=== PATIENT | male | born 1985 | race Two or more races ===

== ENCOUNTER 2016-08-03 19:42 | Inpatient (IN) | payer SELFPAY ==
[~2016-08-03] VITALS: Ht 172.7 cm; Wt 95.1 kg
[2016-08-03 20:11] LABS: BASO # 0.1 x10^3/uL (0.0-0.2); BASO % 1 % (0-3); EOS % 4 % (0-3); HEMATOCRIT 42.7 % (39.0-53.0); HEMOGLOBIN 14.1 g/dL (13.0-17.5); LYMPH # 2.3 x10^3/uL (1.0-4.8); LYMPH % 36 % (24-48); MEAN CORPUSCULAR HEMOGLOBIN 29 pg (25-35); MEAN CORPUSCULAR HGB CONC 33 g/dL (31-37); MEAN CORPUSCULAR VOLUME 86 fL (79-100); MONO % 9 % (0-9); NEUT % 50 % (31-73); PLATELET COUNT 283 x10^3/uL (140-400); RED BLOOD COUNT 4.96 x10^6/uL (4.30-5.70); RED CELL DISTRIBUTION WIDTH 13.8 % (11.5-14.5); WHITE BLOOD COUNT 6.5 x10^3/uL (4.0-11.0)
[2016-08-03 20:12] LABS: BILIRUBIN,URINE NEGATIVE (NEG); GLUCOSE,URINE NEGATIVE (NEG); NITRITE,URINE NEGATIVE (NEG); PH,URINE 5.5; PROTEIN,URINE NEGATIVE (NEG-TRACE)
[2016-08-03 20:20] LABS: BACTERIA,URINE 0 /HPF (0-FEW); CALCIUM 9.3 mg/dL (8.5-10.1); CREATININE 0.8 mg/dL (0.7-1.3); GFR 112.8; POTASSIUM 3.8 mmol/L (3.5-5.1); RBC,URINE OCC /HPF (0-2); SQUAMOUS EPITHELIAL CELL,UR OCC /LPF; WBC,URINE OCC /HPF (0-4)
[2016-08-03 20:26] LABS: ALBUMIN 3.5 g/dL (3.4-5.0); DIRECT BILIRUBIN 2.8 mg/dL (0.0-0.2); TOTAL BILIRUBIN 3.9 mg/dL (0.2-1.0); TOTAL PROTEIN 7.8 g/dL (6.4-8.2)
[2016-08-03] MEDS ORDERED: IV NORMAL SALINE 500ML BAG 500 ML IV ONE (20:30)
--- NOTE | 2016-08-03 22:21 | RAD ---
PROCEDURE ABDOMINAL ULTRASOUND HISTORY epigastric pain TECHNIQUE GRAYSCALE IMAGING OF THE ABDOMEN, TARGETED TO THE RIGHT UPPER QUADRANT, WAS PUT COMPARISON NONE FINDINGS THE PANCREAS IS LARGELY OBSCURED BY GAS. THAT PORTION OF THE INFERIOR VENA CAVA WHICH IS SEEN APPEARS UNREMARKABLE. A FOCAL MASS LESION IS NOT SEEN IN THE VISUALIZED LIVER. THERE IS INCREASED ATTENUATION OF THE ULTRASOUND BEAM BY THE LIVER COMPATIBLE WITH FATTY INFILTRATION. THE GALLBLADDER IS LARGELY CONTRACTED. NO DEFINITE GALLBLADDER PATHOLOGY IS SEEN. THE COMMON BILE DUCT DIAMETER OF APPROXIMATELY 3 MILLIMETERS IS NORMAL. THE RIGHT KIDNEY APPEARS UNREMARKABLE IMPRESSION THE GALLBLADDER IS LARGELY CONTRACTED. NO DEFINITE GALLBLADDER PATHOLOGY SEEN. THE PANCREAS WAS LARGELY OBSCURED. THERE IS FATTY INFILTRATION OF THE LIVER. A DEFINITE ACUTE FINDING IN THE RIGHT UPPER QUADRANT IS NOT SEEN Electronically signed by: Jamarcus Adame (Aug 03, 2016 22:20:05)
[2016-08-03] MEDS ORDERED: ONDANSETRON PF 4 MG/2 ML VIAL. IV PRN (22:45)
[2016-08-03] MEDS ORDERED: MORPHINE SULFATE 2 MG/ML DISP.SYRIN. IV PRN (22:45)
--- NOTE | 2016-08-03 23:17 | PHYS DOC ---
Past Medical History Past Medical History: No Pertinent History Past Surgical History: No Surgical History Alcohol Use: None Drug Use: None Adult General Chief Complaint Chief Complaint: ABDOMINAL PAIN HPI HPI 31-year-old male presenting to the emergency department with jaundice nose epigastric abdominal pain. He describes pain is burning moderate intermittent and nonradiating. He has a history of reportedly drinking approximately 1 tablespoon of household bleach. He was seen at the [facility] however was unable to follow-up with the doctor they scheduled him up for. Review of systems is negative for chest pain. He denies fevers or chills. He has had mild watery diarrhea. Nonbloody stools. All other review of systems is negative unless otherwise noted in history of present illness. Review of Systems Review of Systems SEE ABOVE. Current Medications Current Medications Current Medications Medications (Trade) Dose Ordered Sig/Amanda Start Time Stop Time Status Last Admin Dose Admin Morphine Sulfate 2 mg PRN Q2HR PRN 08/03/16 22:45 08/04/16 22:44 Ondansetron HCl (Zofran) 4 mg PRN Q8HRS PRN 08/03/16 22:45 08/04/16 22:44 Sodium Chloride (Iv Sodium Chloride 0.9% 500ml Bag) 500 ml @ 500 mls/hr 1X ONCE 08/03/16 20:30 08/03/16 21:29 DC 08/03/16 20:20 500 MLS/HR Allergies Allergies Allergies Coded Allergies Type Severity Reaction Last Updated Verified No Known Drug Allergies 08/03/16 No Physical Exam Physical Exam Constitutional: Well developed, well nourished, no acute distress, non-toxic appearance. HENT: Normocephalic, atraumatic, bilateral external ears normal, oropharynx moist, no oral exudates, nose normal. [] Eyes: PERRLA, EOMI, conjunctiva jaundice, no discharge. Neck: Normal range of motion, no tenderness, supple, no stridor. [] Cardiovascular:Heart rate regular rhythm, no murmur Lungs & Thorax: Bilateral breath sounds clear to auscultation [] Abdomen: Soft nontender abdomen without rebound tenderness or guarding present. Negative McBurneys point. Negative Hinojosa sign. No ecchymosis present. Skin: Warm, dry, no erythema, no rash. Jaundice skin Back: No tenderness, no CVA tenderness. Extremities: No tenderness, no cyanosis, no clubbing, ROM intact, no edema. Neurologic: Alert and oriented X 3, normal motor function, normal sensory function, no focal deficits noted. Psychologic: Affect normal, judgement normal, mood normal. [] Current Patient Data Vital Signs Vital Signs Date Time Temp Pulse Resp B/P Pulse Ox O2 Delivery O2 Flow Rate FiO2 08/03/16 20:00 98.2 58 16 156/92 98 Room Air 98.2 Lab Values Laboratory Tests Test 08/03/16 20:00 White Blood Count 6.5x10^3/uL (4.0-11.0) Red Blood Count 4.96x10^6/uL (4.30-5.70) Hemoglobin 14.1g/dL (13.0-17.5) Hematocrit 42.7% (39.0-53.0) Mean Corpuscular Volume 86fL (79-100) Mean Corpuscular Hemoglobin 29pg (25-35) Mean Corpuscular Hemoglobin Concent 33g/dL (31-37) Red Cell Distribution Width 13.8% (11.5-14.5) Platelet Count 283x10^3/uL (140-400) Neutrophils (%) (Auto) 50% (31-73) Lymphocytes (%) (Auto) 36% (24-48) Monocytes (%) (Auto) 9% (0-9) Eosinophils (%) (Auto) 4% (0-3) H Basophils (%) (Auto) 1% (0-3) Neutrophils # (Auto) 3.2x10^3uL (1.8-7.7) Lymphocytes # (Auto) 2.3x10^3/uL (1.0-4.8) Monocytes # (Auto) 0.6x10^3/uL (0.0-1.1) Eosinophils # (Auto) 0.3x10^3/uL (0.0-0.7) Basophils # (Auto) 0.1x10^3/uL (0.0-0.2) Urine Collection Type Unknown Urine Color Yellow Urine Clarity Clear Urine pH 5.5 Urine Specific [place] 1.015 Urine Protein Negativemg/dL (NEG-TRACE) Urine Glucose (UA) Negativemg/dL (NEG) Urine Ketones (Stick) Negativemg/dL (NEG) Urine Blood Negative (NEG) Urine Nitrite Negative (NEG) Urine Bilirubin Negative (NEG) Urine Urobilinogen Dipstick 2.0mg/dL (0.2 mg/dL) Urine Leukocyte Esterase Negative (NEG) Urine RBC Occ/HPF (0-2) Urine WBC Occ/HPF (0-4) Urine Squamous Epithelial Cells Occ/LPF Urine Bacteria 0/HPF (0-FEW) Urine Mucus Slight/LPF Sodium Level 141mmol/L (136-145) Potassium Level 3.8mmol/L (3.5-5.1) Chloride Level 104mmol/L (98-107) Carbon Dioxide Level 28mmol/L (21-32) Anion Gap 9 (6-14) Blood Urea Nitrogen 13mg/dL (8-26) Creatinine 0.8mg/dL (0.7-1.3) Estimated GFR (Cockcroft-Gault) 112.8 Glucose Level 127mg/dL (70-99) H Calcium Level 9.3mg/dL (8.5-10.1) Total Bilirubin 3.9mg/dL (0.2-1.0) H Direct Bilirubin 2.8mg/dL (0.0-0.2) H Aspartate Amino Transferase (AST) 69U/L (15-37) H Alanine Aminotransferase (ALT) 133U/L (16-63) H Alkaline Phosphatase 176U/L (46-116) H Ammonia 10mcmol/L (11-34) L Total Protein 7.8g/dL (6.4-8.2) Albumin 3.5g/dL (3.4-5.0) Lipase 300U/L (73-393) Laboratory Tests 08/03/16 20:00 Laboratory Tests 08/03/16 20:00 EKG EKG [] Radiology/Procedures Radiology/Procedures [] Course & Med Decision Making Course & Med Decision Making Pertinent Labs and Imaging studies reviewed. (See chart for details) [] 31-year-old male presenting the emergency department with worsening jaundice nose and epigastric abdominal pain. He was afebrile with a normal heart rate on vital signs. Mild hypertension. Pertinent physical exam shows a nontender abdomen. Patient did have jaundiceness. Labs sent which confirmed hyperbilirubinemia. CBC unremarkable. Urinalysis not suggestive of infection. Elevation in transaminases and alkaline phosphatase as well. Ultrasound shows contracted gallbladder. No definite acute pathology on ultrasound. Chest x-ray reviewed by myself showed no obvious infiltrate or pneumothorax. EKG not suggestive of ischemia. Given the patient's lab values he was admitted to our hospital for further evaluation workup and care. GI consult placed. Paulette Disclaimer Dragon Disclaimer This electronic medical record was generated, in whole or in part, using a voice recognition dictation system. Departure Departure Impression: Primary Impression: Abdominal pain Additional Impressions: Transaminitis Hyperbilirubinemia Epigastric abdominal pain Disposition: ADMITTED INPATIENT Admitting Physician: Kofi Roman Condition: STABLE Referrals: NO PCP (PCP) Problem Qualifiers LUANNE PARKINSON MD Aug 03, 2016 23:17
[2016-08-03] MEDS ORDERED: LIDO:MAALOX:DONNATAL 1:1:1 15 ML SINGLE DOSE SWSW ONE (23:30)
[2016-08-03 23:45] VITALS: BP 106/72
--- NOTE | 2016-08-04 00:43 | ACF ---
Admission Forms Criteria ABDOMINAL PAIN Clinical Indications for Admission to Inpatient Care (Place 'X' for any and all applicable criteria): Admission is indicated for ANY ONE of the following(1)(2)(3)(4)(5): [X]I. Inpatient admission required rather than observation care (Also use Abdominal Pain: Observation Care, as appropriate) because of ANY ONE of the following: [ ]a) Severe pain requiring acute inpatient management [X]b) Identification of etiology/finding that requires inpatient care (eg, aortic dissection, free air) [ ]c) Absent bowel sounds with complete ileus(6) [ ]d) Suspected toxic megacolon [ ]e) Severe electrolyte abnormalities requiring inpatient care [ ]f) High fever or infection requiring inpatient admission as indicated by ANY ONE of following(7)(8): [ ] i) Appropriate outpatient or observational care antimicrobial treatment unavailable, not effective, or not feasible [ ] ii) Documented bacteremia [ ] iii) Temperature > 104.9 degrees F (oral) [ ] iv) T >103.1 F (oral) or < 96.8 F(rectal) that does not respond to all emergency treatment measures [ ]g) Signs of intestinal obstruction [B] [ ]h) Hemodynamic instability [ ]i) IV fluid to replace significant ongoing losses (greater than 3 L/m2 per day) (12)(13) [ ]j) Percutaneous or open drainage (eg, abscess, biliary tract ) procedures [ ]k) Parenteral nutrition regimen that must be implemented on inpatient basis [ ]l) Other condition,treatment or monitoring requiring inpatient admission. [ ]II. Peritoneal signs present [ ]III. Surgery needed that cannot be performed on an ambulatory basis. [ ]IV. Evaluation requires patient to not eat or drink for extended period ( eg, more than 24 hours). [ ]V. Contraindications and/or Inappropriate clinical situations for Observational Care in patients with abdominal pain, when ANY ONE of the following is required: [ ]a) Thorough evaluation is required to prevent catastrophic events due to delays in diagnosing (e.g.Mesenteric ischemia) 1,3 [ ]b) Patient with severe pathology or with chronic symptoms unlikely to improve in the ED stay (3) [ ]. General contraindications and/or Inappropriate clinical situations for Observational Care in patients with abdominal pain, when ANY ONE of the following is required: [ ]a) Prediction of prolongation of LOS based on ANY ONE of the following may be considered as a contraindication for observational care 2, 3, 4, 5, 6, 7, 8, 9, 10, 11 [ ]i) Age > 65 yrs. [ ]ii) Patient arriving by ambulance [ ]iii) Patient with high acuity [ ]iv) Patient requiring vital sign monitoring [ ]v) Patient on IV medication [ ]b) Systolic blood pressures 180mmHg 3,12 [ ]c) Patient with altered mental status including delirium and other alteration of consciousness, (3) [ ]d) Patient whose discharge disposition will be to a half-way home or rehabilitation home should not be managed in Emergency Department Observation Unit. CMS rule requires 3 days hospital stay before such placement.3,13 [ ]e) Patient with failure to thrive due to broad array of etiologies 3,16,17 [ ]f) Inability to ambulate 3,14 Extended stay beyond goal length of stay may be needed for(2)(3): [ ]a) Persistent abdominal pain with suspected intra-abdominal process [ ]b) Diagnosed condition requiring continued stay (e.g., pancreatitis, complicated diverticulitis) [ ]c) Surgery (e.g., colectomy) The original [facility] content created by [employer] has been revised. The portions of the content which have been revised are identified through the use of italic text or in bold, and [facility] has neither reviewed nor approved the modified material.All other unmodified content is copyright [facility]. Please see references footnoted in the original [facility] edition 2016 Admission Criteria Met?: Yes JOANNA JENNINGS Aug 04, 2016 00:43
[2016-08-04] MEDS ORDERED: DIPHENHYDRAMINE 50 MG/ML VIAL IVP PRN (01:30)
[2016-08-04 03:00] VITALS: BP 127/62
[2016-08-04] MEDS ORDERED: OMEP20CA9 PO (04:22)
--- NOTE | 2016-08-04 06:42 | EKG ---
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 RI6.01 Unconfirmed report No previous ECG available for comparison Electronically Signed On 08-04-2016 14:15:34 CLINICAL VETERINARIAN by Ronald Mcpherson
[2016-08-04 06:43] LABS: BASO % 1 % (0-3); EOS % 5 % (0-3); HEMATOCRIT 39.7 % (39.0-53.0); HEMOGLOBIN 13.1 g/dL (13.0-17.5); LYMPH # 2.4 x10^3/uL (1.0-4.8); LYMPH % 49 % (24-48); MEAN CORPUSCULAR HEMOGLOBIN 29 pg (25-35); MEAN CORPUSCULAR HGB CONC 33 g/dL (31-37); MEAN CORPUSCULAR VOLUME 86 fL (79-100); MONO % 12 % (0-9); NEUT % 34 % (31-73); PLATELET COUNT 225 x10^3/uL (140-400); RED CELL DISTRIBUTION WIDTH 13.5 % (11.5-14.5)
[2016-08-04 07:00] VITALS: BP 98/52
[2016-08-04 07:10] LABS: ALBUMIN/GLOBULIN RATIO 0.9 (1.0-1.7); CALCIUM 8.9 mg/dL (8.5-10.1); CREATININE 0.8 mg/dL (0.7-1.3); GFR 112.8; POTASSIUM 4.3 mmol/L (3.5-5.1); TOTAL PROTEIN 6.4 g/dL (6.4-8.2)
--- NOTE | 2016-08-04 07:39 | RAD ---
EXAM: Chest one view. HISTORY: Shortness of breath. COMPARISON: None. FINDINGS: A frontal view of the chest is obtained. There are no confluent infiltrates. There is no pneumothorax or pleural effusion. The heart is not enlarged. IMPRESSION: 1. No confluent infiltrates.
--- NOTE | 2016-08-04 09:20 | PDOC2 ---
GI CONSULT Reason For Consult: Elevated bilirubin and LFTs HPI: HPI: 31 y/o male w/ h/o ingestion of a small amount of bleach ~2 weeks ago. Was evaluated at and reports EGD showed mild esophagitis. Was prescribed short course of omeprazole "for nausea." Additionally had MRI for elevated bilirubin ; unsure of results. Came to [facility] ER w/ epigastric and LUQ pain (seems ongoing since was seen at , but perhaps worse now), SOA, yellow skin, and pruritus. Also reports diarrhea ("soft" stools x 4 days). Significant labs: bili 3 (from 3.9), AST 61, ALT 118, Alk Phos 149, lipase 300. Abd US showed fatty liver and contracted gallbladder. Denies sick contacts and fever. PMH: PMH: elevated bilirubin, esophagitis FH: Family History: No pertinent hx (denies GI cancers, liver disease), DM, Hypertension Social History: Smoke: Quit ALCOHOL: occassional (3-4 times yearly) Drugs: None ROS: GEN: Denies fevers, chills, sweats HEENT: Denies blurred vision, sore throat CV: Denies chest pain RESP: +SOA GI: Per HPI : Denies hematuria, dysuria ENDO: Denies weight changes NEURO: Denies confusion, dizziness MSK: Denies weakness, joint pain/swelling SKIN: +jaundice, pruritus VItals: Vitals: Vital Signs Date Time Temp Pulse Resp B/P Pulse Ox O2 Delivery O2 Flow Rate FiO2 08/04/16 08:00 Room Air 08/04/16 07:00 97.9 46 16 98/52 96 97.9 Labs: Labs: Laboratory Tests Test 08/03/16 20:00 08/04/16 06:20 White Blood Count 6.5x10^3/uL (4.0-11.0) 5.0x10^3/uL (4.0-11.0) Red Blood Count 4.96x10^6/uL (4.30-5.70) 4.60x10^6/uL (4.30-5.70) Hemoglobin 14.1g/dL (13.0-17.5) 13.1g/dL (13.0-17.5) Hematocrit 42.7% (39.0-53.0) 39.7% (39.0-53.0) Mean Corpuscular Volume 86fL (79-100) 86fL (79-100) Mean Corpuscular Hemoglobin 29pg (25-35) 29pg (25-35) Mean Corpuscular Hemoglobin Concent 33g/dL (31-37) 33g/dL (31-37) Red Cell Distribution Width 13.8% (11.5-14.5) 13.5% (11.5-14.5) Platelet Count 283x10^3/uL (140-400) 225x10^3/uL (140-400) Neutrophils (%) (Auto) 50% (31-73) 34% (31-73) Lymphocytes (%) (Auto) 36% (24-48) 49% (24-48) Monocytes (%) (Auto) 9% (0-9) 12% (0-9) Eosinophils (%) (Auto) 4% (0-3) 5% (0-3) Basophils (%) (Auto) 1% (0-3) 1% (0-3) Neutrophils # (Auto) 3.2x10^3uL (1.8-7.7) 1.7x10^3uL (1.8-7.7) Lymphocytes # (Auto) 2.3x10^3/uL (1.0-4.8) 2.4x10^3/uL (1.0-4.8) Monocytes # (Auto) 0.6x10^3/uL (0.0-1.1) 0.6x10^3/uL (0.0-1.1) Eosinophils # (Auto) 0.3x10^3/uL (0.0-0.7) 0.3x10^3/uL (0.0-0.7) Basophils # (Auto) 0.1x10^3/uL (0.0-0.2) 0.0x10^3/uL (0.0-0.2) Urine Collection Type Unknown Urine Color Yellow Urine Clarity Clear Urine pH 5.5 Urine Specific [place] 1.015 Urine Protein Negativemg/dL (NEG-TRACE) Urine Glucose (UA) Negativemg/dL (NEG) Urine Ketones (Stick) Negativemg/dL (NEG) Urine Blood Negative (NEG) Urine Nitrite Negative (NEG) Urine Bilirubin Negative (NEG) Urine Urobilinogen Dipstick 2.0mg/dL (0.2 mg/dL) Urine Leukocyte Esterase Negative (NEG) Urine RBC Occ/HPF (0-2) Urine WBC Occ/HPF (0-4) Urine Squamous Epithelial Cells Occ/LPF Urine Bacteria 0/HPF (0-FEW) Urine Mucus Slight/LPF Sodium Level 141mmol/L (136-145) 143mmol/L (136-145) Potassium Level 3.8mmol/L (3.5-5.1) 4.3mmol/L (3.5-5.1) Chloride Level 104mmol/L (98-107) 107mmol/L (98-107) Carbon Dioxide Level 28mmol/L (21-32) 27mmol/L (21-32) Anion Gap 9 (6-14) 9 (6-14) Blood Urea Nitrogen 13mg/dL (8-26) 13mg/dL (8-26) Creatinine 0.8mg/dL (0.7-1.3) 0.8mg/dL (0.7-1.3) Estimated GFR (Cockcroft-Gault) 112.8 112.8 Glucose Level 127mg/dL (70-99) 111mg/dL (70-99) Calcium Level 9.3mg/dL (8.5-10.1) 8.9mg/dL (8.5-10.1) Total Bilirubin 3.9mg/dL (0.2-1.0) 3.0mg/dL (0.2-1.0) Direct Bilirubin 2.8mg/dL (0.0-0.2) Aspartate Amino Transf (AST/SGOT) 69U/L (15-37) 61U/L (15-37) Alanine Aminotransferase (ALT/SGPT) 133U/L (16-63) 118U/L (16-63) Alkaline Phosphatase 176U/L (46-116) 149U/L (46-116) Ammonia 10mcmol/L (11-34) Total Protein 7.8g/dL (6.4-8.2) 6.4g/dL (6.4-8.2) Albumin 3.5g/dL (3.4-5.0) 3.0g/dL (3.4-5.0) Lipase 300U/L (73-393) BUN/Creatinine Ratio 16 (6-20) Albumin/Globulin Ratio 0.9 (1.0-1.7) Allergies: Coded Allergies: No Known Drug Allergies (Unverified , 08/03/16) Medications: Current Medications Medications (Trade) Dose Ordered Sig/Amanda Route PRN Reason Start Time Stop Time Status Last Admin Dose Admin Sodium Chloride (Iv Sodium Chloride 0.9% 500ml Bag) 500 ml @ 500 mls/hr 1X ONCE IV 08/03/16 20:30 08/03/16 21:29 DC 08/03/16 20:20 Multi-Ingredient Mouthwash/Gargle (Gi Cocktail Single Dose) 15 ml 1X ONCE SWSW 08/03/16 23:30 08/03/16 23:31 DC 08/03/16 23:41 Diphenhydramine HCl (Benadryl) 50 mg PRN Q8HRS PRN IVP ITCHING 08/04/16 01:30 08/04/16 01:48 Imaging: Imaging: CXR IMPRESSION: 1. No confluent infiltrates. Abd US IMPRESSION THE GALLBLADDER IS LARGELY CONTRACTED. NO DEFINITE GALLBLADDER PATHOLOGY SEEN. THE PANCREAS WAS LARGELY OBSCURED. THERE IS FATTY INFILTRATION OF THE LIVER. A DEFINITE ACUTE FINDING IN THE RIGHT UPPER QUADRANT IS NOT SEEN PE: GEN: NAD HEENT: Atraumatic, +sclera icteric LUNGS: CTAB anteriorly HEART: RRR ABD: NABS, S/ND, epigastric to LUQ tenderness - under ribs EXTREMITY: No edema SKIN: + mild jaundice NEURO/PSYCH: A & O 3 A/P: A/P: Elevated bilirubin, LFTs w/ pruritus -as above -seen at ~2 weeks ago after ingesting bleach, reports MRI for elevated bilirubin (unsure of results) -US here shows fatty liver and contracted gallbladder Epigastric and LUQ pain -EGD at ~2 weeks ago reportedly showed esophagitis, took a short course of omeprazole Diarrhea -reports soft stools x 4 days -- Request [facility] records - EGD, MRI, labs. Restart PPI. PEARL PEREZ Aug 04, 2016 09:20
[2016-08-04 10:52] VITALS: BP 99/54
[2016-08-04] MEDS ORDERED: ONDANSETRON PF 4 MG/2 ML VIAL. IV PRN (14:00)
[2016-08-04] MEDS ORDERED: ACETAMINOPHEN 325 MG TABLET. PO PRN (14:00)
--- NOTE | 2016-08-04 14:04 | PDOC1 ---
History and Physical Date of Admission Date of Admission 08/04/16 Identification/Chief Complaint Chief Complaint abd pain Problems: Source Source: Chart review, Patient History of Present Illness History of Present Illness HPI HPI 31-year-old male presenting to the emergency department with jaundice nose epigastric abdominal pain. He describes pain is burning moderate intermittent and nonradiating. He has a history of reportedly drinking approximately 1 tablespoon of household bleach 2 weeks ago. He was seen at the [facility] however was unable to follow-up with the doctor they scheduled him up for. pt said since 2 weeks ago, after taking the bleach, he was told his LFT was abnormal with jaundice, also got EGD,but cannot tell me what they found in [facility]. denies hepatitis before. + dark urine. + diarrhea for 4 days, + nausea, no vomiting. Review of systems is negative for chest pain. He denies fevers or chills. He has had mild watery diarrhea. Nonbloody stools. All other review of systems is negative unless otherwise noted in history of present illness. Past Medical History Past Medical History none Past Surgical History Past Surgical History: No pertinent history Social History Smoke: No ALCOHOL: occassional (3-4 times yearly) Drugs: None Current Problem List Problem List Problems Medical Problems: (1) Abdominal pain Status: Acute (2) Epigastric abdominal pain Status: Acute (3) Hyperbilirubinemia Status: Acute (4) Transaminitis Status: Acute Current Medications Current Medications Current Medications Medications (Trade) Dose Ordered Sig/Amanda Start Time Stop Time Status Last Admin Dose Admin Diphenhydramine HCl (Benadryl) 50 mg PRN Q8HRS PRN 08/04/16 01:30 08/04/16 01:48 50 MG Morphine Sulfate 2 mg PRN Q2HR PRN 08/03/16 22:45 08/04/16 22:44 Multi-Ingredient Mouthwash/Gargle (Gi Cocktail Single Dose) 15 ml 1X ONCE 08/03/16 23:30 08/03/16 23:31 DC 08/03/16 23:41 15 ML Ondansetron HCl (Zofran) 4 mg PRN Q8HRS PRN 08/03/16 22:45 08/04/16 22:44 Sodium Chloride (Iv Sodium Chloride 0.9% 500ml Bag) 500 ml @ 500 mls/hr 1X ONCE 08/03/16 20:30 08/03/16 21:29 DC 08/03/16 20:20 500 MLS/HR Allergies Allergies Allergies Coded Allergies Type Severity Reaction Last Updated Verified No Known Drug Allergies 08/03/16 No ROS Review of System CONSTITUTIONAL: No fever or chills EYES: No recent changes SKIN: No rash or itching CARDIOVASCULAR: No chest pain, syncope, palpitations, or edema RESPIRATORY: No SOB or cough GASTROINTESTINAL: No nausea, vomiting or abdominal pain NEUROLOGICAL: No headaches or weakness ENDOCRINE: No cold or heat intolerance GENITOURINARY: No urgency or frequency of urination MUSCULOSKELETAL: No back pain or joint pain LYMPHATICS: No enlarged lymph nodes PSYCHIATRIC: No anxiety or depression Physical Exam Physical Exam GEN.: No apparent distress. Alert and oriented. JAundice HEENT: Head is normocephalic, atraumatic NECK: Supple. LUNGS: Clear to auscultation. HEART: RRR, S1, S2 present. Peripheral pulses intact ABDOMEN: Soft, Positive bowel sounds. mild epigastric area tenderness EXTREMITIES: Without any cyanosis. NEUROLOGIC: Normal speech, normal tone PSYCHIATRIC: Normal affect, normal mood. SKIN: No ulcerations Vitals Vitals Vital Signs Date Time Temp Pulse Resp B/P Pulse Ox O2 Delivery O2 Flow Rate FiO2 08/04/16 10:52 97.9 49 16 99/54 96 Room Air 97.9 Labs Labs Laboratory Tests Test 08/03/16 20:00 08/04/16 06:20 White Blood Count 6.5x10^3/uL (4.0-11.0) 5.0x10^3/uL (4.0-11.0) Red Blood Count 4.96x10^6/uL (4.30-5.70) 4.60x10^6/uL (4.30-5.70) Hemoglobin 14.1g/dL (13.0-17.5) 13.1g/dL (13.0-17.5) Hematocrit 42.7% (39.0-53.0) 39.7% (39.0-53.0) Mean Corpuscular Volume 86fL (79-100) 86fL (79-100) Mean Corpuscular Hemoglobin 29pg (25-35) 29pg (25-35) Mean Corpuscular Hemoglobin Concent 33g/dL (31-37) 33g/dL (31-37) Red Cell Distribution Width 13.8% (11.5-14.5) 13.5% (11.5-14.5) Platelet Count 283x10^3/uL (140-400) 225x10^3/uL (140-400) Neutrophils (%) (Auto) 50% (31-73) 34% (31-73) Lymphocytes (%) (Auto) 36% (24-48) 49% (24-48) Monocytes (%) (Auto) 9% (0-9) 12% (0-9) Eosinophils (%) (Auto) 4% (0-3) 5% (0-3) Basophils (%) (Auto) 1% (0-3) 1% (0-3) Neutrophils # (Auto) 3.2x10^3uL (1.8-7.7) 1.7x10^3uL (1.8-7.7) Lymphocytes # (Auto) 2.3x10^3/uL (1.0-4.8) 2.4x10^3/uL (1.0-4.8) Monocytes # (Auto) 0.6x10^3/uL (0.0-1.1) 0.6x10^3/uL (0.0-1.1) Eosinophils # (Auto) 0.3x10^3/uL (0.0-0.7) 0.3x10^3/uL (0.0-0.7) Basophils # (Auto) 0.1x10^3/uL (0.0-0.2) 0.0x10^3/uL (0.0-0.2) Urine Collection Type Unknown Urine Color Yellow Urine Clarity Clear Urine pH 5.5 Urine Specific [place] 1.015 Urine Protein Negativemg/dL (NEG-TRACE) Urine Glucose (UA) Negativemg/dL (NEG) Urine Ketones (Stick) Negativemg/dL (NEG) Urine Blood Negative (NEG) Urine Nitrite Negative (NEG) Urine Bilirubin Negative (NEG) Urine Urobilinogen Dipstick 2.0mg/dL (0.2 mg/dL) Urine Leukocyte Esterase Negative (NEG) Urine RBC Occ/HPF (0-2) Urine WBC Occ/HPF (0-4) Urine Squamous Epithelial Cells Occ/LPF Urine Bacteria 0/HPF (0-FEW) Urine Mucus Slight/LPF Sodium Level 141mmol/L (136-145) 143mmol/L (136-145) Potassium Level 3.8mmol/L (3.5-5.1) 4.3mmol/L (3.5-5.1) Chloride Level 104mmol/L (98-107) 107mmol/L (98-107) Carbon Dioxide Level 28mmol/L (21-32) 27mmol/L (21-32) Anion Gap 9 (6-14) 9 (6-14) Blood Urea Nitrogen 13mg/dL (8-26) 13mg/dL (8-26) Creatinine 0.8mg/dL (0.7-1.3) 0.8mg/dL (0.7-1.3) Estimated GFR (Cockcroft-Gault) 112.8 112.8 Glucose Level 127mg/dL (70-99) 111mg/dL (70-99) Calcium Level 9.3mg/dL (8.5-10.1) 8.9mg/dL (8.5-10.1) Total Bilirubin 3.9mg/dL (0.2-1.0) 3.0mg/dL (0.2-1.0) Direct Bilirubin 2.8mg/dL (0.0-0.2) Aspartate Amino Transf (AST/SGOT) 69U/L (15-37) 61U/L (15-37) Alanine Aminotransferase (ALT/SGPT) 133U/L (16-63) 118U/L (16-63) Alkaline Phosphatase 176U/L (46-116) 149U/L (46-116) Ammonia 10mcmol/L (11-34) Total Protein 7.8g/dL (6.4-8.2) 6.4g/dL (6.4-8.2) Albumin 3.5g/dL (3.4-5.0) 3.0g/dL (3.4-5.0) Lipase 300U/L (73-393) BUN/Creatinine Ratio 16 (6-20) Albumin/Globulin Ratio 0.9 (1.0-1.7) Laboratory Tests Test 08/03/16 20:00 08/04/16 06:20 White Blood Count 6.5x10^3/uL (4.0-11.0) 5.0x10^3/uL (4.0-11.0) Red Blood Count 4.96x10^6/uL (4.30-5.70) 4.60x10^6/uL (4.30-5.70) Hemoglobin 14.1g/dL (13.0-17.5) 13.1g/dL (13.0-17.5) Hematocrit 42.7% (39.0-53.0) 39.7% (39.0-53.0) Mean Corpuscular Volume 86fL (79-100) 86fL (79-100) Mean Corpuscular Hemoglobin 29pg (25-35) 29pg (25-35) Mean Corpuscular Hemoglobin Concent 33g/dL (31-37) 33g/dL (31-37) Red Cell Distribution Width 13.8% (11.5-14.5) 13.5% (11.5-14.5) Platelet Count 283x10^3/uL (140-400) 225x10^3/uL (140-400) Neutrophils (%) (Auto) 50% (31-73) 34% (31-73) Lymphocytes (%) (Auto) 36% (24-48) 49% (24-48) Monocytes (%) (Auto) 9% (0-9) 12% (0-9) Eosinophils (%) (Auto) 4% (0-3) 5% (0-3) Basophils (%) (Auto) 1% (0-3) 1% (0-3) Neutrophils # (Auto) 3.2x10^3uL (1.8-7.7) 1.7x10^3uL (1.8-7.7) Lymphocytes # (Auto) 2.3x10^3/uL (1.0-4.8) 2.4x10^3/uL (1.0-4.8) Monocytes # (Auto) 0.6x10^3/uL (0.0-1.1) 0.6x10^3/uL (0.0-1.1) Eosinophils # (Auto) 0.3x10^3/uL (0.0-0.7) 0.3x10^3/uL (0.0-0.7) Basophils # (Auto) 0.1x10^3/uL (0.0-0.2) 0.0x10^3/uL (0.0-0.2) Urine Collection Type Unknown Urine Color Yellow Urine Clarity Clear Urine pH 5.5 Urine Specific [place] 1.015 Urine Protein Negativemg/dL (NEG-TRACE) Urine Glucose (UA) Negativemg/dL (NEG) Urine Ketones (Stick) Negativemg/dL (NEG) Urine Blood Negative (NEG) Urine Nitrite Negative (NEG) Urine Bilirubin Negative (NEG) Urine Urobilinogen Dipstick 2.0mg/dL (0.2 mg/dL) Urine Leukocyte Esterase Negative (NEG) Urine RBC Occ/HPF (0-2) Urine WBC Occ/HPF (0-4) Urine Squamous Epithelial Cells Occ/LPF Urine Bacteria 0/HPF (0-FEW) Urine Mucus Slight/LPF Sodium Level 141mmol/L (136-145) 143mmol/L (136-145) Potassium Level 3.8mmol/L (3.5-5.1) 4.3mmol/L (3.5-5.1) Chloride Level 104mmol/L (98-107) 107mmol/L (98-107) Carbon Dioxide Level 28mmol/L (21-32) 27mmol/L (21-32) Anion Gap 9 (6-14) 9 (6-14) Blood Urea Nitrogen 13mg/dL (8-26) 13mg/dL (8-26) Creatinine 0.8mg/dL (0.7-1.3) 0.8mg/dL (0.7-1.3) Estimated GFR (Cockcroft-Gault) 112.8 112.8 Glucose Level 127mg/dL (70-99) 111mg/dL (70-99) Calcium Level 9.3mg/dL (8.5-10.1) 8.9mg/dL (8.5-10.1) Total Bilirubin 3.9mg/dL (0.2-1.0) 3.0mg/dL (0.2-1.0) Direct Bilirubin 2.8mg/dL (0.0-0.2) Aspartate Amino Transf (AST/SGOT) 69U/L (15-37) 61U/L (15-37) Alanine Aminotransferase (ALT/SGPT) 133U/L (16-63) 118U/L (16-63) Alkaline Phosphatase 176U/L (46-116) 149U/L (46-116) Ammonia 10mcmol/L (11-34) Total Protein 7.8g/dL (6.4-8.2) 6.4g/dL (6.4-8.2) Albumin 3.5g/dL (3.4-5.0) 3.0g/dL (3.4-5.0) Lipase 300U/L (73-393) BUN/Creatinine Ratio 16 (6-20) Albumin/Globulin Ratio 0.9 (1.0-1.7) VTE Prophylaxis Ordered VTE Prophylaxis Devices: Yes VTE Pharmacological Prophylaxi: Yes Assessment/Plan Assessment/Plan 1. epigastric abd pain, 2/2 liver vs. gallbladder dz? 2. elevated transaminitis, not clear etiology, 2/2 cholecystitis? neg US tho 3. diarrhea 4. jaundice 5. recent swallowing bleach and got EGD with possible esophagitis? 6. low albumin 2/2 liver dz plan: 1. fu with GI, [facility] records pending otherwise need to repeat all labs including hepatitis panel 2. LFT daily 3. dvt, gi ppx ZACK LUIS MD Aug 04, 2016 14:04
[2016-08-04 15:00] VITALS: BP 98/55
[2016-08-04] MEDS: PANTOPRAZOLE 40 MG TABLET. PO SCH (15:00)
[2016-08-04] MEDS: ENOXAPARIN 40 MG/0.4 ML DISP.SYRIN. SQ SCH (17:16)
[2016-08-04 19:00] VITALS: BP 130/64
[2016-08-04 23:00] VITALS: BP 116/46
[2016-08-05 04:43] LABS: DIRECT BILIRUBIN 2.3 mg/dL (0.0-0.2); TOTAL BILIRUBIN 3.3 mg/dL (0.2-1.0); TOTAL PROTEIN 6.9 g/dL (6.4-8.2)
[2016-08-05 07:04] VITALS: BP 115/63
[2016-08-05] MEDS: PANTOPRAZOLE 40 MG TABLET. PO SCH (09:25)
[2016-08-05 10:33] VITALS: BP 116/62
--- NOTE | 2016-08-05 11:58 | PDOC ---
Subjective: Subjective: No pain, eating okay, no stools today. Still feels itchy. Objective: Vital Signs: Vital Signs Date Time Temp Pulse Resp B/P Pulse Ox O2 Delivery O2 Flow Rate FiO2 08/05/16 10:33 97.7 50 20 116/62 98 Room Air 97.7 Labs: Laboratory Tests Test 08/05/16 03:18 Total Bilirubin 3.3mg/dL Direct Bilirubin 2.3mg/dL Aspartate Amino Transf (AST/SGOT) 98U/L Alanine Aminotransferase (ALT/SGPT) 164U/L Alkaline Phosphatase 145U/L Total Protein 6.9g/dL Albumin 3.0g/dL PE: GEN: NAD, itching chest LUNGS: CTAB HEART: RRR ABD: NABS, S/ND/NT NEURO/PSYCH: A & O 3 A/P: Elevated bilirubin, pruritus -bili 3.9 to 3 to 3.3 -reports MRI @ ~2 weeks ago for elevated bilirubin (unsure of results) - recs requested (EGD, MRI, labs) but not received -US here showed fatty liver, contracted gallbladder Epigastric and LUQ pain - resolved -EGD@ ~2 weeks ago (after ingesting bleach) reportedly showed esophagitis -on PPI Diarrhea - improved -soft stools yesterday, none today -- Pain and diarrhea improved, liver tests still elevated. ?viral hepatitis No recs from - will review w/ Dr. Rachel. PEARL PEREZ Aug 05, 2016 11:58
--- NOTE | 2016-08-05 12:30 | PDOC ---
PROGRESS NOTES Chief Complaint Chief Complaint 1. epigastric abd pain, 2/2 liver vs. gallbladder dz?, 2. elevated transaminitis, not clear etiology, likely viral hepatitis, neg US 3. diarrhea 4. jaundice 5. recent swallowing bleach and got EGD with possible esophagitis? 6. low albumin 2/2 liver dz plan: 1. fu with GI, [facility] records pending otherwise need to repeat all labs including hepatitis panel 2. LFT daily 3. dvt, gi ppx History of Present Illness History of Present Illness abd pain and diarrhea better LFT still high Vitals Vitals Vital Signs Date Time Temp Pulse Resp B/P Pulse Ox O2 Delivery O2 Flow Rate FiO2 08/05/16 10:33 97.7 50 20 116/62 98 Room Air 97.7 Physical Exam Physical Exam jaundice General: Alert, Oriented X3, Cooperative Heart: Regular rate, Normal S1, Normal S2 Lungs: Clear Abdomen: Normal bowel sounds, Soft, Other (epigastric tenderness) Extremities: No clubbing, No cyanosis Skin: No rashes Labs LABS Laboratory Tests Test 08/05/16 03:18 Total Bilirubin 3.3mg/dL (0.2-1.0) Direct Bilirubin 2.3mg/dL (0.0-0.2) Aspartate Amino Transf (AST/SGOT) 98U/L (15-37) Alanine Aminotransferase (ALT/SGPT) 164U/L (16-63) Alkaline Phosphatase 145U/L (46-116) Total Protein 6.9g/dL (6.4-8.2) Albumin 3.0g/dL (3.4-5.0) Review of Systems Review of Systems no fever, chills, sob or chest pain Assessment and Plan Assessmemt and Plan Problems Medical Problems: (1) Abdominal pain Status: Acute (2) Epigastric abdominal pain Status: Acute (3) Hyperbilirubinemia Status: Acute (4) Transaminitis Status: Acute Problems: Comment Review of Relevant I have reviewed the following items kris (where applicable) has been applied. Labs Laboratory Tests Test 08/03/16 20:00 08/04/16 06:20 08/05/16 03:18 White Blood Count 6.5x10^3/uL (4.0-11.0) 5.0x10^3/uL (4.0-11.0) Red Blood Count 4.96x10^6/uL (4.30-5.70) 4.60x10^6/uL (4.30-5.70) Hemoglobin 14.1g/dL (13.0-17.5) 13.1g/dL (13.0-17.5) Hematocrit 42.7% (39.0-53.0) 39.7% (39.0-53.0) Mean Corpuscular Volume 86fL (79-100) 86fL (79-100) Mean Corpuscular Hemoglobin 29pg (25-35) 29pg (25-35) Mean Corpuscular Hemoglobin Concent 33g/dL (31-37) 33g/dL (31-37) Red Cell Distribution Width 13.8% (11.5-14.5) 13.5% (11.5-14.5) Platelet Count 283x10^3/uL (140-400) 225x10^3/uL (140-400) Neutrophils (%) (Auto) 50% (31-73) 34% (31-73) Lymphocytes (%) (Auto) 36% (24-48) 49% (24-48) Monocytes (%) (Auto) 9% (0-9) 12% (0-9) Eosinophils (%) (Auto) 4% (0-3) 5% (0-3) Basophils (%) (Auto) 1% (0-3) 1% (0-3) Neutrophils # (Auto) 3.2x10^3uL (1.8-7.7) 1.7x10^3uL (1.8-7.7) Lymphocytes # (Auto) 2.3x10^3/uL (1.0-4.8) 2.4x10^3/uL (1.0-4.8) Monocytes # (Auto) 0.6x10^3/uL (0.0-1.1) 0.6x10^3/uL (0.0-1.1) Eosinophils # (Auto) 0.3x10^3/uL (0.0-0.7) 0.3x10^3/uL (0.0-0.7) Basophils # (Auto) 0.1x10^3/uL (0.0-0.2) 0.0x10^3/uL (0.0-0.2) Urine Collection Type Unknown Urine Color Yellow Urine Clarity Clear Urine pH 5.5 Urine Specific [place] 1.015 Urine Protein Negativemg/dL (NEG-TRACE) Urine Glucose (UA) Negativemg/dL (NEG) Urine Ketones (Stick) Negativemg/dL (NEG) Urine Blood Negative (NEG) Urine Nitrite Negative (NEG) Urine Bilirubin Negative (NEG) Urine Urobilinogen Dipstick 2.0mg/dL (0.2 mg/dL) Urine Leukocyte Esterase Negative (NEG) Urine RBC Occ/HPF (0-2) Urine WBC Occ/HPF (0-4) Urine Squamous Epithelial Cells Occ/LPF Urine Bacteria 0/HPF (0-FEW) Urine Mucus Slight/LPF Sodium Level 141mmol/L (136-145) 143mmol/L (136-145) Potassium Level 3.8mmol/L (3.5-5.1) 4.3mmol/L (3.5-5.1) Chloride Level 104mmol/L (98-107) 107mmol/L (98-107) Carbon Dioxide Level 28mmol/L (21-32) 27mmol/L (21-32) Anion Gap 9 (6-14) 9 (6-14) Blood Urea Nitrogen 13mg/dL (8-26) 13mg/dL (8-26) Creatinine 0.8mg/dL (0.7-1.3) 0.8mg/dL (0.7-1.3) Estimated GFR (Cockcroft-Gault) 112.8 112.8 Glucose Level 127mg/dL (70-99) 111mg/dL (70-99) Calcium Level 9.3mg/dL (8.5-10.1) 8.9mg/dL (8.5-10.1) Total Bilirubin 3.9mg/dL (0.2-1.0) 3.0mg/dL (0.2-1.0) 3.3mg/dL (0.2-1.0) Direct Bilirubin 2.8mg/dL (0.0-0.2) 2.3mg/dL (0.0-0.2) Aspartate Amino Transf (AST/SGOT) 69U/L (15-37) 61U/L (15-37) 98U/L (15-37) Alanine Aminotransferase (ALT/SGPT) 133U/L (16-63) 118U/L (16-63) 164U/L (16-63) Alkaline Phosphatase 176U/L (46-116) 149U/L (46-116) 145U/L (46-116) Ammonia 10mcmol/L (11-34) Total Protein 7.8g/dL (6.4-8.2) 6.4g/dL (6.4-8.2) 6.9g/dL (6.4-8.2) Albumin 3.5g/dL (3.4-5.0) 3.0g/dL (3.4-5.0) 3.0g/dL (3.4-5.0) Lipase 300U/L (73-393) BUN/Creatinine Ratio 16 (6-20) Albumin/Globulin Ratio 0.9 (1.0-1.7) Laboratory Tests Test 08/05/16 03:18 Total Bilirubin 3.3mg/dL (0.2-1.0) Direct Bilirubin 2.3mg/dL (0.0-0.2) Aspartate Amino Transf (AST/SGOT) 98U/L (15-37) Alanine Aminotransferase (ALT/SGPT) 164U/L (16-63) Alkaline Phosphatase 145U/L (46-116) Total Protein 6.9g/dL (6.4-8.2) Albumin 3.0g/dL (3.4-5.0) Medications Current Medications Sodium Chloride (Iv Sodium Chloride 0.9% 500ml Bag) 500 ml @ 500 mls/hr 1X ONCE IV Last administered on 08/03/16t 20:20; Start 08/03/16 at 20:30; Stop at 21:29; Status DC Ondansetron HCl (Zofran) 4 mg PRN Q8HRS PRN IV NAUSEA/VOMITING; Start 08/03/16 at 22:45; Stop 08/04/16 at 22:44; Status DC Morphine Sulfate 2 mg PRN Q2HR PRN IV SEVERE PAIN; Start 08/03/16 at 22:45; Stop 08/04/16 at 22:44; Status DC Multi-Ingredient Mouthwash/Gargle (Gi Cocktail Single Dose) 15 ml 1X ONCE SWSW Last administered on 08/03/16 23:41; Start 08/03/16 at 23:30; Stop 08/03/16 at 23:31; Status DC Diphenhydramine HCl (Benadryl) 50 mg PRN Q8HRS PRN IVP ITCHING Last administered on 08/04/16 01:48; Start 08/04/16 at 01:30 Acetaminophen (Tylenol) 325 mg PRN Q6HRS PRN PO MILD PAIN / TEMP; Start at 14:00 Ondansetron HCl (Zofran) 4 mg PRN Q6HRS PRN IV NAUSEA/VOMITING; Start 08/04/16 at 14:00 Pantoprazole Sodium (Protonix) 40 mg DAILYAC PO Last administered on 08/05/16 09:25; Start 08/04/16 at 14:30 Enoxaparin Sodium (Lovenox 40mg Syringe) 40 mg Q24H SQ Last administered on 08/04 17:16; Start 08/04/16 at 16:00 Active Scripts Active Reported Omeprazole 20 Mg Capsule.dr 1 Cap PO DAILY Vitals/I & O Vital Sign - Last 24 Hours 08/04/16 08/04/16 08/04/16 08/04/16 15:00 19:00 20:00 23:00 Temp 97.9 98.1 98.7 97.9 98.1 98.7 Pulse 49 54 60 Resp 18 18 18 B/P 98/55 130/64 116/46 Pulse Ox 18 99 97 O2 Delivery Room Air Room Air Room Air Room Air 08/05/16 08/05/16 08/05/16 07:04 08:00 10:33 Temp 97.7 97.7 97.7 97.7 Pulse 50 50 Resp 18 20 B/P 115/63 116/62 Pulse Ox 97 98 O2 Delivery Room Air Room Air Room Air Intake and Output 08/04/16 08/04/16 08/05/16 15:00 23:00 07:00 Intake Total 240 ml 720 ml 840 ml Balance 240 ml 720 ml 840 ml ZACK LUIS MD Aug 05, 2016 12:30
[2016-08-05 14:58] VITALS: BP 104/53
[2016-08-05] MEDS: ENOXAPARIN 40 MG/0.4 ML DISP.SYRIN. SQ SCH (18:15)
[2016-08-05 19:00] VITALS: BP 132/74
[2016-08-05 23:00] VITALS: BP 129/67
[2016-08-06 00:10] LABS: HEP A IGM ABDY Negative (Negative)
[2016-08-06 03:00] VITALS: BP 113/66
[2016-08-06 07:00] VITALS: BP_SYST 109; BP_SYST 110; BP_DIAS 45; BP_DIAS 60
[2016-08-06] MEDS: PANTOPRAZOLE 40 MG TABLET. PO SCH (08:15)
[2016-08-06] MEDS ORDERED: PANT40TA5 PO (10:54)
--- NOTE | 2016-08-06 10:57 | PDOC ---
Subjective: Subjective: Vomited yesterday. Tolerating PO again today. Mild nausea sometimes after eating. Less itchy. No pain. Objective: Vital Signs: Vital Signs Date Time Temp Pulse Resp B/P Pulse Ox O2 Delivery O2 Flow Rate FiO2 08/06/16 07:00 109/60 08/06/16 07:00 97.7 60 18 98 Room Air 97.7 Imaging: From [facility]: EGD 07/[address] Pederson: LA Grade B reflux esophagitis, non-bleeding erosive gastropathy, normal duodenum. No biopsies. MRCP 07/2015: tiny hepatocellular phase defect c/w calcified granuloma, no enhancing liver lesion, portal and hepatic veins well opacified, contracted gallbladder, no cholelithiasis, no bile duct dilatation, no intraductal filling defect, normal caliber pancreatic duct, unremarkable pancreas, main pancreatic duct normal caliber. PE: GEN: NAD LUNGS: CTAB HEART: RRR ABD: NABS, S/ND/NT NEURO/PSYCH: A & O 3 A/P: Elevated bilirubin, pruritus -bili in 3s, pending labs today -[facility] recs: Grade B esophagitis on EGD, unrevealing MRCP -[facility] workup: US w/ fatty liver, Hep panel neg Epigastric and LUQ pain - resolved -on PPI Nausea -occasionally after eating Diarrhea - resolved -- D/w Dr. Bhatti, Dr. Rachel. Will check EBV, CMV. Continue PPI, okay to DC. Can follow-up as outpt. PEARL PEREZ Aug 06, 2016 10:57
[2016-08-06 11:00] VITALS: BP 126/63
[2016-08-06 11:09] LABS: ALBUMIN 3.1 g/dL (3.4-5.0); DIRECT BILIRUBIN 2.5 mg/dL (0.0-0.2); TOTAL BILIRUBIN 3.7 mg/dL (0.2-1.0); TOTAL PROTEIN 7.1 g/dL (6.4-8.2)
--- NOTE | 2016-08-06 14:24 | PDOC3 ---
Discharge Summary [facility] Date of Admission: Aug 03, 2016 Discharge Date: Aug 06, 2016 Admitting Diagnosis 1. epigastric abd pain, 2/2 viral hepatitis possibly 2. elevated transaminitis, possible viral hepatitis, neg US 3. diarrhea 4. jaundice 5. recent swallowing bleach and got EGD with small gastric ulcer 6. low albumin 2/2 liver dz Problems: Final Diagnosis Problems Medical Problems: (1) Abdominal pain Status: Acute (2) Epigastric abdominal pain Status: Acute (3) Hyperbilirubinemia Status: Acute (4) Transaminitis Status: Acute CONSULTS gi Brief Hospital Course 31-year-old male presenting to the emergency department with jaundice nose epigastric abdominal pain. He describes pain is burning moderate intermittent and nonradiating. He has a history of reportedly drinking approximately 1 tablespoon of household bleach 2 weeks ago. He was seen at the [facility] however was unable to follow-up with the doctor they scheduled him up for. pt said since 2 weeks ago, after taking the bleach, he was told his LFT was abnormal with jaundice, also got EGD,but cannot tell me what they found in [facility]. denies hepatitis before. + dark urine. + diarrhea for 4 days, + nausea, no vomiting. Pt's LFT is mild elevated, cont having mild abd pain, with nausea yesterday better today, diarrhea better. [facility] records showed neg MRCP, small gastric ulcer. Hepatitis panel neg. stable to dc, check EBV, CMV, fu with gi next week for result dc time 35min . Physical Exam jaundice General: Alert, Oriented X3, Cooperative Heart: Regular rate, Normal S1, Normal S2 Lungs: Clear Abdomen: Normal bowel sounds, Soft, Other (epigastric tenderness) Extremities: No clubbing, No cyanosis Skin: No rashes Patient History: Family history: Diabetes mellitus (situation) 32 MOTHER Family history: Hypertension (situation) 32 MOTHER Problems: Disposition home CONDITION AT DISCHARGE: Improved Diet regular Scheduled Pantoprazole Sodium (Pantoprazole Sodium) 40 MG PO DAILYAC Discontinued Medications Omeprazole (Omeprazole) 1 CAP PO DAILY (Reported) Follow Up gi next week ZACK LUIS MD Aug 06, 2016 14:24
== END 2016-08-06 13:00 | disposition home or self-care (01) | DRG 442 ==
LOC: ER 19:42 → 5 NORTH 22:49
PROVIDERS: ADMIT Internal Medicine; ATTEND Internal Medicine
DX: B19.9 Unspecified viral hepatitis without hepatic coma (principal); R17 Unspecified jaundice; B34.9 Viral infection, unspecified; L29.9 Pruritus, unspecified; R19.7 Diarrhea, unspecified; K25.9 Gastric ulcer, unspecified as acute or chronic, without hemorrhage or perforation; K80.20 Calculus of gallbladder without cholecystitis without obstruction; Z82.49 Family history of ischemic heart disease and other diseases of the circulatory system; Z87.11 Personal history of peptic ulcer disease; Z83.3 Family history of diabetes mellitus; Z87.891 Personal history of nicotine dependence
CPT/HCPCS: 36415; 71010; 76705; 80048; 80053; 80074; 80076; 81001; 82140; 83690; 85027; 86644; 86645; 86663; 86664; 93005; 96360; 96361; J1200; J1650; J2405; J7040; 99285-25

== ENCOUNTER 2019-08-02 20:47 | Emergency (ER) | payer SELFPAY ==
[~2019-08-02] VITALS: Ht 177.8 cm; Wt 104.0 kg
[~2019-08-02 20:47] MED LIST: OMEP20CA16 PO; PANT40TA77 PO
--- NOTE | 2019-08-02 21:18 | PHYS DOC ---
Past Medical History Past Medical History: No Pertinent History Past Surgical History: No Surgical History Smoking Status: Never Smoker Alcohol Use: Heavy Additional Information: 4-6 beers daily Drug Use: None Adult General Chief Complaint Chief Complaint: ABDOMINAL PAIN HPI HPI Patient is a 34 year old male who presents with 5 days of left upper quadrant pain that is sharp. He states he is nauseated and has a lack of appetite. He states he drinks 5-6 beers a day. Patient denies chest pain, shortness of air, fever, vomiting, diarrhea, dizziness, headache, visual changes, numbness or tingling, focal weakness. Review of Systems Review of Systems GI: LUQ abdominal pain, nausea, denies vomiting, bloody stools or diarrhea [] All other systems were reviewed and found to be within normal limits, except as documented in this note. Current Medications Current Medications Current Medications Medications (Trade) Dose Ordered Sig/Amanda Start Time Stop Time Status Last Admin Dose Admin Famotidine (Pepcid Vial) 20 mg 1X ONCE 08/02/19 21:30 08/02/19 21:31 DC 08/02/19 21:29 20 MG Fentanyl Citrate (Fentanyl 2ml Vial) 50 mcg 1X ONCE 08/02/19 21:30 08/02/19 21:31 DC 08/02/19 21:31 50 MCG Info (CONTRAST GIVEN -- Rx MONITORING) 1 each PRN DAILY PRN 08/02/19 21:45 08/04/19 21:44 Iohexol (Omnipaque 300 Mg/ml) 75 ml 1X ONCE 08/02/19 22:00 08/02/19 22:01 DC 08/02/19 21:52 75 ML Multi-Ingredient Mouthwash/Gargle (Gi Cocktail) 20 ml 1X ONCE 08/02/19 22:30 08/02/19 22:31 DC 08/02/19 22:33 20 ML Ondansetron HCl (Zofran) 4 mg 1X ONCE 08/02/19 21:30 08/02/19 21:31 DC 08/02/19 21:32 4 MG Sodium Chloride 1,000 ml @ 1,000 mls/hr Q1H 08/02/19 21:30 08/02/19 22:29 DC 08/02/19 21:30 1,000 MLS/HR Allergies Allergies Allergies Coded Allergies Type Severity Reaction Last Updated Verified No Known Drug Allergies 08/03/16 No Physical Exam Physical Exam Constitutional: Well developed, well nourished, no acute distress, non-toxic appearance. [] HENT: Normocephalic, atraumatic, bilateral external ears normal, oropharynx moist, no oral exudates, nose normal. [] Eyes: PERRLA, EOMI, conjunctiva normal, no discharge. [] Neck: Normal range of motion, no tenderness, supple, no stridor. [] Cardiovascular:Heart rate regular rhythm, no murmur [] Lungs & Thorax: Bilateral breath sounds clear to auscultation [] Abdomen: Bowel sounds normal, soft, LUQ tenderness, no masses, no pulsatile masses. [] Skin: Warm, dry, no erythema, no rash. [] Back: No tenderness, no CVA tenderness. [] Extremities: No tenderness, no cyanosis, no clubbing, ROM intact, no edema. [] Neurologic: Alert and oriented X 3, normal motor function, normal sensory function, no focal deficits noted. [] Psychologic: Affect normal, judgement normal, mood normal. [] Current Patient Data Vital Signs Vital Signs Date Time Temp Pulse Resp B/P (MAP) Pulse Ox O2 Delivery O2 Flow Rate FiO2 08/02/19 21:31 20 100 Room Air 08/02/19 21:03 98.3 76 154/89 (110) 98.3 Lab Values Laboratory Tests Test 08/02/19 21:20 08/02/19 21:25 White Blood Count 7.2 x10^3/uL (4.0-11.0) Red Blood Count 5.02 x10^6/uL (4.30-5.70) Hemoglobin 14.4 g/dL (13.0-17.5) Hematocrit 42.5 % (39.0-53.0) Mean Corpuscular Volume 85 fL (79-100) Mean Corpuscular Hemoglobin 29 pg (25-35) Mean Corpuscular Hemoglobin Concent 34 g/dL (31-37) Red Cell Distribution Width 13.1 % (11.5-14.5) Platelet Count 214 x10^3/uL (140-400) Neutrophils (%) (Auto) 46 % (31-73) Lymphocytes (%) (Auto) 40 % (24-48) Monocytes (%) (Auto) 11 % (0-9) H Eosinophils (%) (Auto) 2 % (0-3) Basophils (%) (Auto) 1 % (0-3) Neutrophils # (Auto) 3.3 x10^3/uL (1.8-7.7) Lymphocytes # (Auto) 2.9 x10^3/uL (1.0-4.8) Monocytes # (Auto) 0.8 x10^3/uL (0.0-1.1) Eosinophils # (Auto) 0.1 x10^3/uL (0.0-0.7) Basophils # (Auto) 0.0 x10^3/uL (0.0-0.2) Prothrombin Time 12.5 SEC (11.7-14.0) Prothrombin Time INR 1.0 (0.8-1.1) Sodium Level 138 mmol/L (136-145) Potassium Level 3.7 mmol/L (3.5-5.1) Chloride Level 103 mmol/L (98-107) Carbon Dioxide Level 26 mmol/L (21-32) Anion Gap 9 (6-14) Blood Urea Nitrogen 22 mg/dL (8-26) Creatinine 1.1 mg/dL (0.7-1.3) Estimated GFR (Cockcroft-Gault) 76.6 BUN/Creatinine Ratio 20 (6-20) Glucose Level 99 mg/dL (70-99) Calcium Level 9.1 mg/dL (8.5-10.1) Total Bilirubin 0.4 mg/dL (0.2-1.0) Aspartate Amino Transferase (AST) 73 U/L (15-37) H Alanine Aminotransferase (ALT) 133 U/L (16-63) H Alkaline Phosphatase 96 U/L (46-116) Troponin I Quantitative < 0.017 ng/mL (0.000-0.055) Total Protein 7.7 g/dL (6.4-8.2) Albumin 4.2 g/dL (3.4-5.0) Albumin/Globulin Ratio 1.2 (1.0-1.7) Lipase 126 U/L (73-393) Urine Collection Type Unknown Urine Color Yellow Urine Clarity Clear Urine pH 5.5 Urine Specific [place] 1.020 Urine Protein Negative mg/dL (NEG-TRACE) Urine Glucose (UA) Negative mg/dL (NEG) Urine Ketones (Stick) 40 mg/dL (NEG) Urine Blood Negative (NEG) Urine Nitrite Negative (NEG) Urine Bilirubin Negative (NEG) Urine Urobilinogen Dipstick 1.0 mg/dL (0.2 mg/dL) Urine Leukocyte Esterase Negative (NEG) Urine RBC 0 /HPF (0-2) Urine WBC 0 /HPF (0-4) Urine Bacteria 0 /HPF (0-FEW) Urine Mucus Slight /LPF Urine Opiates Screen Neg (NEG) Urine Methadone Screen Neg (NEG) Urine Barbiturates Neg (NEG) Urine Phencyclidine Screen Neg (NEG) Urine Amphetamine/Methamphetamine Neg (NEG) Urine Benzodiazepines Screen Neg (NEG) Urine Cocaine Screen Neg (NEG) Urine Cannabinoids Screen Neg (NEG) Urine Ethyl Alcohol Neg (NEG) Laboratory Tests 08/02/19 21:20 Laboratory Tests 08/02/19 21:20 EKG EKG SINUS RHYTHM AND NO STEMI[] Interpretation Time: [address] WEISS Radiology/Procedures Radiology/Procedures [] Impressions: [facility] [address] [place] [address] IMAGING REPORT Signed PATIENT: MEY CARDENASACCOUNT: [id number] : 1985 LOCATION: ER AGE: 34 SEX: M EXAM STATUS: REG ER ORD. PHYSICIAN: BISHOP ALEGRIA APRN REASON: LUQ pain PROCEDURE: CT ABD PELV W/ IV CONTRST ONLY Exam: CT of abdomen and pelvis with contrast INDICATION: Left upper quadrant pain TECHNIQUE: Sequential axial images through the abdomen and pelvis obtained following the administration of 75 mL of Omni 300 IV contrast. Sagittal and coronal reformatted images were reconstructed from the axial data and reviewed. Comparisons: None FINDINGS: Heart size is normal. No pericardial effusion. Visualized lung bases are clear. No pleural effusion. There is mild diffuse hepatic steatosis. Spleen, pancreas, gallbladder and adrenals are unremarkable. Kidneys demonstrate symmetric enhancement. No perinephric inflammation or hydronephrosis. No renal or ureteral calculi are identified. Bladder is decompressed not well evaluated. Prostate is not enlarged. Large and small bowel are unremarkable. Appendix is normal. No free abdominal air or fluid. No obstruction. Abdominal aorta has a normal course and caliber. Abdominal vasculature is patent. No enlarged abdominal lymph nodes are identified. No suspicious osseous lesions or acute fractures. IMPRESSION: 1. Mild diffuse hepatic steatosis. 2. No acute process identified within the abdomen or pelvis. Exposure: One or more of the following in the visualized dose reduction techniques were utilized for this examination: 1. Automated exposure control 2. Adjustment of the MA and/or KV according to patient size 3. Use of iterative of reconstructive technique Electronically signed by: Mk Rowland MD (08/02/2019 10:00 PM) [id number] DICTATED and SIGNED BY: MK ROWLAND MD DATE: 08/02/192199 Course & Med Decision Making Course & Med Decision Making Pertinent Labs and Imaging studies reviewed. (See chart for details) Alert and oriented. Speaks in full clear sentences. Ambulatory with a steady gait. Skin pink warm and dry. LUQ tenderness but abdomen otherwise soft. Afebrile. Blood work is unremarkable. Patient's AST and ALT are slightly elevated. CT abdomen pelvis shows no acute findings. Patient was given a GI cocktail and he states that that did help his pain. Patient will be placed on Protonix and his follow-up with her GI doctor. I educated him months stopping drinking alcohol. He stated his understanding. [] Dragon Disclaimer Dragon Disclaimer This electronic medical record was generated, in whole or in part, using a voice recognition dictation system. Departure Departure Impression: Primary Impression: Abdominal pain Disposition: HOME, SELF-CARE Condition: STABLE Referrals: NO PCP (PCP) GARY GERARDO MD Patient Instructions: Abdominal Pain Additional Instructions: Follow-up with gastrointestinal doctor soon as possible. Take medication as prescribed. Stop drinking alcohol. Scripts Pantoprazole Sodium (PROTONIX) 20 Mg Tablet. 1 TAB PO DAILY, #30 TAB 3 Refills Prov: BISHOP ALEGRIA INFORMATION SYSTEMS TECHNICIAN 08/02/19 Problem Qualifiers Primary Impression: Abdominal pain Abdominal location: left upper quadrant Qualified Codes: R10.12 - Left upper quadrant pain BISHOP ALEGRIA INFORMATION SYSTEMS TECHNICIAN Aug 02, 2019 21:18
[2019-08-02 21:28] LABS: BASO % 1 % (0-3); EOS # 0.1 x10^3/uL (0.0-0.7); EOS % 2 % (0-3); HEMATOCRIT 42.5 % (39.0-53.0); HEMOGLOBIN 14.4 g/dL (13.0-17.5); LYMPH # 2.9 x10^3/uL (1.0-4.8); LYMPH % 40 % (24-48); MEAN CORPUSCULAR HEMOGLOBIN 29 pg (25-35); MEAN CORPUSCULAR HGB CONC 34 g/dL (31-37); MEAN CORPUSCULAR VOLUME 85 fL (79-100); MONO # 0.8 x10^3/uL (0.0-1.1); MONO % 11 % (0-9); NEUT # 3.3 x10^3/uL (1.8-7.7); NEUT % 46 % (31-73); PLATELET COUNT 214 x10^3/uL (140-400); RED BLOOD COUNT 5.02 x10^6/uL (4.30-5.70); RED CELL DISTRIBUTION WIDTH 13.1 % (11.5-14.5); WHITE BLOOD COUNT 7.2 x10^3/uL (4.0-11.0)
[2019-08-02] MEDS ORDERED: ONDANSETRON PF 4 MG/2 ML VIAL. IV ONE (21:30)
[2019-08-02] MEDS ORDERED: fentaNYL PF VIAL 100 MCG/2 ML VIAL IV ONE (21:30)
[2019-08-02] MEDS ORDERED: IV NORMAL SALINE 1000ML BAG 1,000 ML IV SCH (21:30)
[2019-08-02] MEDS ORDERED: FAMOTIDINE 20 MG/2 ML VIAL IVP ONE (21:30)
[2019-08-02 21:36] LABS: CALCIUM 9.1 mg/dL (8.5-10.1); CREATININE 1.1 mg/dL (0.7-1.3); GFR 76.6; POTASSIUM 3.7 mmol/L (3.5-5.1)
[2019-08-02 21:37] LABS: PROTHROMBIN TIME PATIENT 12.5 SEC (11.7-14.0)
[2019-08-02 21:42] LABS: ALBUMIN 4.2 g/dL (3.4-5.0); ALBUMIN/GLOBULIN RATIO 1.2 (1.0-1.7); TOTAL BILIRUBIN 0.4 mg/dL (0.2-1.0); TOTAL PROTEIN 7.7 g/dL (6.4-8.2)
[2019-08-02] MEDS ORDERED: CONTRAST GIVEN. MC PRN (21:45)
[2019-08-02 21:46] LABS: BILIRUBIN,URINE NEGATIVE (NEG); CLARITY,URINE CLEAR; COLOR,URINE YELLOW; NITRITE,URINE NEGATIVE (NEG); PH,URINE 5.5; PROTEIN,URINE NEGATIVE (NEG-TRACE)
[2019-08-02 21:53] LABS: AMPHETAMINE/METHAMPHETAMINE NEG (NEG); BARBITURATES NEG (NEG); BENZODIAZEPINES NEG (NEG); CANNABINOIDS NEG (NEG); COCAINE NEG (NEG); METHADONE NEG (NEG); OPIATES NEG (NEG); PHENCYCLIDINE NEG (NEG)
[2019-08-02 21:54] LABS: BACTERIA,URINE 0 /HPF (0-FEW); RBC,URINE 0 /HPF (0-2); WBC,URINE 0 /HPF (0-4)
[2019-08-02] MEDS ORDERED: IOHEXOL 300 MG/ML 100ML VIAL. IV ONE (22:00)
--- NOTE | 2019-08-02 22:02 | RAD ---
Exam: CT of abdomen and pelvis with contrast INDICATION: Left upper quadrant pain TECHNIQUE: Sequential axial images through the abdomen and pelvis obtained following the administration of 75 mL of Omni 300 IV contrast. Sagittal and coronal reformatted images were reconstructed from the axial data and reviewed. Comparisons: None FINDINGS: Heart size is normal. No pericardial effusion. Visualized lung bases are clear. No pleural effusion. There is mild diffuse hepatic steatosis. Spleen, pancreas, gallbladder and adrenals are unremarkable. Kidneys demonstrate symmetric enhancement. No perinephric inflammation or hydronephrosis. No renal or ureteral calculi are identified. Bladder is decompressed not well evaluated. Prostate is not enlarged. Large and small bowel are unremarkable. Appendix is normal. No free abdominal air or fluid. No obstruction. Abdominal aorta has a normal course and caliber. Abdominal vasculature is patent. No enlarged abdominal lymph nodes are identified. No suspicious osseous lesions or acute fractures. IMPRESSION: 1. Mild diffuse hepatic steatosis. 2. No acute process identified within the abdomen or pelvis. Exposure: One or more of the following in the visualized dose reduction techniques were utilized for this examination: 1. Automated exposure control 2. Adjustment of the MA and/or KV according to patient size 3. Use of iterative of reconstructive technique Electronically signed by: Mk Carvalho MD (08/02/2019 10:00 PM) [id number]
[2019-08-02] MEDS ORDERED: LIDO:MAALOX 1:1 20 ML SINGLE DOSE. SWSW ONE (22:30)
[2019-08-02] MEDS ORDERED: PANT20TA2 PO (23:06)
[2019-08-02 23:15] VITALS: BP 134/70
--- NOTE | 2019-08-03 06:09 | EKG ---
[facility] [address] [place] [address] Test Date: 2019-08-02 Test Time: 21:37:05 Pat Name: MEY CARDENAS Department: Room: Gender: M Chief Data Officer: : 1985 Requested By: BISHOP ALEGRIA Order Number: [id number] Reading MD: Measurements Intervals [place] Rate: 69 P: -17 [place]: 132 QRS: 13 QRSD: 112 T: 3 QT: 368 QTc: 400 Interpretive Statements SINUS RHYTHM QRS(T) CONTOUR ABNORMALITY CONSISTENT WITH INFERIOR INFARCT AGE UNDETERMINED ABNORMAL ECG No previous ECG available for comparison
== END 2019-08-02 23:21 | disposition home or self-care (01) ==
LOC: ER 20:47
DX: R10.12 Left upper quadrant pain (principal); R11.0 Nausea; F10.10 Alcohol abuse, uncomplicated; Z79.899 Other long term (current) drug therapy
CPT/HCPCS: 36415; 74177; 80053; 80307; 81001; 83690; 84484; 85025; 85610; 93005; 96374; 96375; 99285; J2405; J3010; J3490; J7030; Q9967